=== PATIENT | male | born 1955 | race Two or more races ===

== ENCOUNTER 2024-10-10 12:35 | Emergency (ER) | payer OTHER ==
[~2024-10-10] VITALS: Ht 160 cm; Wt 66.3 kg
--- NOTE | 2024-10-10 13:13 | ED.PDOC ---
Ghassan. trauma (HPI) HPI Comments HPI: Poor Historian. 69 y.o male presents to the ED for an evaluation of a head injury. Patient reports rolling out of his bed around 0100 and hit the posterior side of his head. Patient has mild local pain to the back of his scalp. Patient denies any LOC, nausea, vomiting, chest pain, SOB or dizziness. Patient is on blood thinners but is unsure of the name of medication. Vitals BP: 116/73 HR: 61 Temp: 98.6 F RR: 16 SPO2: 9 6% RA Past medical history: DM, Hyperlipidemia, HTN, Arthritis Past surgical history: Angioplasty Allergies: Denies Solomon: normal exam. REVIEW OF SYSTEMS: CONSTITUTIONAL: Denies acute: fever, diaphoresis, chills, generalized weakness. HEAD: Denies acute: photophobia Eyes: Denies acute: Double vision, vision loss, eye pain, eye discharge. EARS: Denies acute: tinnitus, hearing loss, ear discharge, ear pain, THROAT: Denies acute: sore throat, swelling, difficulty swallowing , pain with swallowing, change in voice. NECK: Denies acute: neck pain, neck swelling, stiff neck. HEART: Denies acute : chest pain, palpitations, LUNGS: Denies acute: SOB, wheezing, cough, hemoptysis ABDOMEN: Denies acute: abdominal pain, Nausea, Vomiting, diarrhea, melena , hematemesis, hematochezia SKIN: Denies acute: rash, redness, lesions, itchiness. EXTREMITIES: Denies acute: calf pain, numbness, tingling, weakness, denies pain in extremity. Denies acute: Low back pain. Neuro: Denies acute: focal neurological deficit, motor or sensory focal neurological deficit, tremors, seizure like activity, confusion, dizziness, change in mental status, loss of bowel or bladder function, cauda equina like symptoms. : Denies acute: dysuria, hematuria, flank pain, increase in urinary frequency. PSYCH: Denies acute: hallucination, suicidal ideation, homicidal ideation. PHYSICAL EXAM: General: no acute distress, awake and alert. Head: normocephalic, atraumatic. No swelling. Patient has a focal point of pain at the crown of his head where he fell. Neck: supple, trachea is midline, no swelling. Cervical spine: Palpation of the posterior midline of the cervical spine reveals no focal swelling, erythema, focal tenderness to palpation. Patient has normal range of motion. Throat: Normal phonation. Eyes:, no erythema, no purulent discharge, no proptosis, no icterus. Heart: regular rate, regular rhythm, no significant murmur appreciated. Lungs: no apparent respiratory distress, Able to speak in full sentences. No wheezing, no rhonchi, no crackles. No stridors Clear to auscultation bilaterally. Abdomen: non tender to palpation, non distended, soft, no guarding, no rebound, + bowel sounds. Neuro: Awake, Alert, oriented to name, self, situation, follows commands GCS=15. Speech is normal. Skin: no petechia, no purpura, no cyanosis, non-pale, not jaundice. Lower extremities: --no - Pitting edema no deformity, no focal swelling, no calf TTP. Makes eye contact. moves all four extremities. Face: no apparent facial droop. Ambulating in the ED independently. PERRLA, EOM-I CN 2-12 are grossly intact, Pedal pulses are palpable. No nystagmus. No nuchal rigidity, Kernig's sign, Brudzinski's sign, no meningeal signs. ED COURSE: Chief Complaint: Head Injury Time Seen by MD: 13:00 Reviewed notes: Nurses Notes, Allergies Allergies: Coded Allergies: NO KNOWN ALLERGIES (Unverified , 10/10/24) Information Source: Patient Mode of Arrival: Ambulatory Past Medical History PAST MEDICAL HISTORY: Arthritis, DM, High Lipids, HTN Surgical History (Other): angioplasty Family History Family History: Reviewed,noncontributory to illness Social History Smoker: Non-Smoker Alcohol: Denies ETOH Use Drugs: Denies Drug Use Lives In: Home Was a procedure done? Was a procedure done?: No Differential Diagnosis Multiple Trauma: Closed Head Injury, Contusion X-Ray, Labs, Meds, VS Vital Signs Date Time Temp Pulse Resp B/P (MAP) Pulse Ox O2 Delivery O2 Flow Rate FiO2 10/10/24 17:40 98.0 55 18 122/77 (92) 100 98.0 10/10/24 15:40 50 18 100 Room Air* 0 21 10/10/24 15:40 98.0 50 18 121/66 (84) 100 98.0 10/10/24 12:35 98.6 61 16 119/73 (88) 96 Lab Test 10/10/24 15:39 10/10/24 15:24 10/10/24 13:46 Range/Units Urine Color Light-yellow Yellow Urine Clarity Clear Clear Urine pH 6.0 5.0-9.0 Urine Specific Dierks 1.018 1.001-1.035 Urine Protein Negative Negative Urine Ketones Negative Negative Urine Blood Negative Negative /uL Urine Nitrite Negative Negative Urine Bilirubin Negative Negative Urine Urobilinogen Normal Negative mg/dL Urine Leukocyte Esterase Negative Negative /uL Urine RBC 1 0 - 3 /hpf Urine Microscopic WBC < 1 0-3 /HPF Urine Squamous Epithelial Cells Few <5 /hpf Urine Bacteria None seen None Seen /hpf Urine Glucose 4+ H Normal mg/dL Troponin I High Sensitivity 7 7 </=54 ng/L White Blood Count 7.7 4.4-10.8 10^3/uL Red Blood Count 4.95 4.5-5.90 10^6/uL Hemoglobin 15.7 13.5-17.5 g/dL Hematocrit 47.6 41.0-53.0 % Mean Corpuscular Volume 96.2 80.0-100.0 fL Mean Corpuscular Hemoglobin 31.8 28.0-32.0 pg Mean Corpuscular Hemoglobin Concent 33.0 32.0-36.0 g/dL Red Cell Distribution Width 14.8 H 11.8-14.3 % Platelet Count 181 140-450 10^3/uL Mean Platelet Volume 9.7 6.9-10.8 fL Neutrophils (%) (Auto) 70.6 37.0-80.0 % Lymphocytes (%) (Auto) 18.4 10.0-50.0 % Monocytes (%) (Auto) 6.6 0.0-12.0 % Eosinophils (%) (Auto) 3.7 0.0-7.0 % Basophils (%) (Auto) 0.7 0.0-2.0 % Neutrophils # (Auto) 5.4 1.6-8.6 10 ^3/uL Lymphocytes # (Auto) 1.4 0.4-5.4 10 ^3/uL Monocytes # (Auto) 0.5 0-1.3 10 ^3/uL Eosinophils # (Auto) 0.3 0-0.8 10 ^3/uL Basophils # (Auto) 0.1 0-0.2 10 ^3/uL Nucleated Red Blood Cells 0.2 % Sodium Level 141 136-145 mmol/L Potassium Level 4.7 3.5-5.1 mmol/L Chloride Level 105 98-107 mmol/L Carbon Dioxide Level 29 20-31 mmol/L Anion Gap 7 5-15 Blood Urea Nitrogen 13 9-23 mg/dL Creatinine 1.06 0.700-1.30 mg/dL Glomerular Filtration Rate Calc 76 >90 mL/min BUN/Creatinine Ratio 12.3 10.0-20.0 Serum Glucose 93 74-106 mg/dL Calcium Level 10.5 H 8.7-10.4 mg/dL Total Bilirubin 0.4 0.2-1.0 mg/dL Aspartate Amino Transferase (AST) 17 13-40 U/L Alanine Aminotransferase (ALT) 28 7-40 U/L Alkaline Phosphatase 122 H 46-116 U/L Total Protein 6.9 5.7-8.2 g/dL Albumin 4.9 H 3.2-4.8 g/dL [place] [address] Ph: [phone] DIAGNOSTIC IMAGING Diagnostic Imaging Report : [id number] Signed PATIENT: LENCHO VOOACCT: [id number] UNIT: [id number] : 1955 LOC: ER ROOM / BED: / AGE / SEX: 69 / M ADM STATUS: REG ER SERVICE 1259 ORDERING PHYSICIAN: GABRIELA KING DO PROCEDURE(s): HWOCT - HEAD WITHOUT CONTRAST REASON: fall injury ORDER NUMBER(s): [id number], ACCESSION NUMBER(s): [id number] EXAM: CT HEAD WITHOUT CONTRAST HISTORY: fall injury COMPARISON: None TECHNIQUE: Axial images of the head were obtained and reformatted in coronal and sagittal planes. All CT scans at this medical facility are performed using dose modulation techniques as appropriate to a performed exam including the following: Automated exposure control was utilized; adjustment of the MA and/or KV according to patient size; and use of iterative reconstruction technique. CT Dose: CTDI volume is 54 mGy. Dose-length product is 1629 mGy*cm FINDINGS: There is no evidence of acute intracranial hemorrhage, mass, mass effect midline shift. There is no hydrocephalus or extra-axial fluid collection. There is a small area of encephalomalacia in the medial right parietal lobe. Quesada-white matter differentiation is otherwise maintained. The visualized paranasal sinuses and mastoid air cells are clear. The calvarium is intact. IMPRESSION: 1. No acute intracranial process. HS:Y ATED BY: JARED LOPEZ MD DICTATED DATE/TIME: 10/10/241344 SIGNED BY: JARED LOPEZ MD SIGNED DATE/TIME: 10/10/241344 CC: [place] [address] Ph: [phone] DIAGNOSTIC IMAGING Diagnostic Imaging Report : [id number] Signed PATIENT: LENCHO VOOACCT: [id number] UNIT: [id number] : 1955 LOC: ER ROOM / BED: / AGE / SEX: 69 / M ADM STATUS: REG ER SERVICE 1259 ORDERING PHYSICIAN: GABRIELA KING DO PROCEDURE(s): CXRP - CHEST PORTABLE REASON: fall injury ORDER NUMBER(s): [id number], ACCESSION NUMBER(s): [id number] INDICATION: fall injury TECHNIQUE: Frontal view of the chest. COMPARISON: None FINDINGS: The heart and mediastinal contours are grossly unremarkable. There is no evidence of pleural disease. The lungs are clear. The bony structures of the chest are intact without fracture. IMPRESSION: 1. No evidence of acute disease. ATED BY: BETH MEYER MD DICTATED DATE/TIME: 10/10/241335 SIGNED BY: BETH MEYER MD SIGNED DATE/TIME: 10/10/241335 CC: [place] [address] Ph: [phone] DIAGNOSTIC IMAGING Diagnostic Imaging Report : [id number] Signed PATIENT: LENCHO VOOACCT: [id number] UNIT: [id number] : 1955 LOC: ER ROOM / BED: / AGE / SEX: 69 / M ADM STATUS: REG ER SERVICE 1259 ORDERING PHYSICIAN: GABRIELA KING DO PROCEDURE(s): CS2 - CERVICAL WITHOUT CONTRAST REASON: fall injury ORDER NUMBER(s): [id number], ACCESSION NUMBER(s): [id number] EXAM: CT CERVICAL WITHOUT CONTRAST INDICATION: fall injury EXAM DATE: 10/10/2024 01:06 PM COMPARISON: None TECHNIQUE: Noncontrast axial CT images of the cervical spine were performed. Sagittal and coronal reformatted images were obtained. Radiation optimization: All CT scans at this facility use at least one of these dose optimization techniques: automated exposure control mA and/or kV adjustment per patient size (includes targeted exams where dose is matched to clinical indication) or iterative reconstruction. Radiation Dose Information: CT Dose: CTDI volume is 20.96 mGy. Dose-length product is 657.66 mGy*cm FINDINGS: See below IMPRESSION: 1. No fracture of the cervical spine. 2. Advanced cervical degenerative disc disease and facet arthropathy with significant neural foraminal stenosis at C2-C3 on the left; C3-C4 on the left; C5-C6 on the left; C6-C7 bilaterally. These findings may correspond to upper extremity radicular symptoms in the left C3, left C4, left C6, and bilateral C7 nerve root distributions. 3. 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 Recommend follow-up noncontrast MRI of the cervical spine for better characterization as there is likely mass effect on the cervical spinal cord at multiple levels. 4. The patient is completely edentulous. 5. Ellamore tonsillar hypertrophy without significant airway narrowing. 6. Paraseptal emphysema of the lung apices. 7. Fluid in the bilateral mastoid air cells which may be due to sterile fluid or mastoiditis. 8. Atherosclerotic calcifications of the bilateral carotid bulbs. ATED BY: CARL PRECIADO MD DICTATED DATE/TIME: 10/10/24 1355 SIGNED BY: CARL PRECIADO MD SIGNED DATE/TIME: 10/10/24 1355 CC: Time of 1ST Reevaluation: 13:07 Reevaluation 1ST: Unchanged Time of 2ND Reevaluation: 00:00 Reevaluation 2ND: Resolved Patient Education/Counseling: Diagnosis, Treatment Family Education/Counseling: No Family Present Comments Patient presented with the above HPI.---headache/closed head injury---workup was initiated. patient was found with the above mentioned diagnosis. the following medications were ordered: please refer to order lists of meds and tests obtained by myself Dr. King. Patient ED course and VS have been stabilized. Patient has been reassessed in the ED and remained in a stable condition. Pertinent incidental findings were discussed with the patient and/or family. Patient/family voices understanding and is agreeable with plan. Patient has been observed in the ED adequate length of time to insure improvement/stability. Escalation of care considered: Consideration of escalation to observation or admission Patient was DISCHARGED home in a stable condition. All the reports of any imaging studies that were ordered by myself were reviewed by myself. Departure 1 Departure Time of Disposition: 17:18 Impression: Primary Impression: Closed head injury Disposition: 01 HOME / SELF CARE / HOMELESS Condition: Stable Additional Instructions: Additional discharge instructions: You MUST follow-up with your primary care/family doctor in 1 to 2 days. If you are unable to see your primary care/family doctor, please return to our emergency room for re-assessment and re-evaluation in 1 to 2 days. Return to the emergency room here in our facility or to the nearest ER [facility] if your symptoms change or worsen. CONSULTATIONS: you MUST Follow-up for consultation as soon as possible with: -neurology in 1-2 days. Please call for appointment You MUST call the consultants office yourself to make an appointment. You may need to arrange that through your insurance and/or your primary/family doctor. If you are unable to see the contamination consultant in 1 to 2 days, you must return to our emergency room (or any other ER of your choice) for re-assessment and re- evaluation. Adequate fluid hydration. Fall precautions. Monitoring blood pressure at home. Below is a copy of your radiological report for follow up: [place] [id number] Ph: [phone] DIAGNOSTIC IMAGING Diagnostic Imaging Report : [id number] Signed PATIENT: CHARLES VO ACCT: [id number] UNIT: [id number] : 1955 LOC: ER ROOM / BED: / AGE / SEX: 69 / M ADM STATUS: REG ER SERVICE 1259 ORDERING PHYSICIAN: GABRIELA KING DO PROCEDURE(s): HWOCT - HEAD WITHOUT CONTRAST REASON: fall injury ORDER NUMBER(s): [id number], ACCESSION NUMBER(s): [id number] EXAM: CT HEAD WITHOUT CONTRAST HISTORY: fall injury COMPARISON: None TECHNIQUE: Axial images of the head were obtained and reformatted in coronal and sagittal planes. All CT scans at this medical facility are performed using dose modulation techniques as appropriate to a performed exam including the following: Automated exposure control was utilized; adjustment of the MA and/or KV according to patient size; and use of iterative reconstruction technique. CT Dose: CTDI volume is 54 mGy. Dose-length product is 1629 mGy*cm FINDINGS: There is no evidence of acute intracranial hemorrhage, mass, mass effect midline shift. There is no hydrocephalus or extra-axial fluid collection. There is a small area of encephalomalacia in the medial right parietal lobe. Quesada-white matter differentiation is otherwise maintained. The visualized paranasal sinuses and mastoid air cells are clear. The calvarium is intact. IMPRESSION: 1. No acute intracranial process. HS:Y ATED BY: JARED LOPEZ MD DICTATED DATE/TIME: 10/10/24 1345 SIGNED BY: JARED LOPEZ MD SIGNED DATE/TIME: 10/10/24 1345 CC: [address] [address] Ph: [phone] DIAGNOSTIC IMAGING Diagnostic Imaging Report : [id number] Signed PATIENT: CHARLES VO ACCT: [id number] UNIT: [id number] : 1955 LOC: ER ROOM / BED: / AGE / SEX: 69 / M ADM STATUS: REG ER SERVICE 1259 ORDERING PHYSICIAN: GABRIELA KING DO PROCEDURE(s): CXRP - CHEST PORTABLE REASON: fall injury ORDER NUMBER(s): [id number], ACCESSION NUMBER(s): [id number] INDICATION: fall injury TECHNIQUE: Frontal view of the chest. COMPARISON: None FINDINGS: The heart and mediastinal contours are grossly unremarkable. There is no evidence of pleural disease. The lungs are clear. The bony structures of the chest are intact without fracture. IMPRESSION: 1. No evidence of acute disease. ATED BY: BETH MEYER MD DICTATED DATE/TIME: 10/10/241335 SIGNED BY: BETH MEYER MD SIGNED DATE/TIME: 10/10/241335 CC: [place] [address] Ph: [phone] DIAGNOSTIC IMAGING Diagnostic Imaging Report : [id number] Signed PATIENT: CHARLES VO ACCT: [id number] UNIT: [id number] : 1955 LOC: ER ROOM / BED: / AGE / SEX: 69 / M ADM STATUS: REG ER SERVICE 1259 ORDERING PHYSICIAN: GABRIELA KING DO PROCEDURE(s): CS2 - CERVICAL WITHOUT CONTRAST REASON: fall injury ORDER NUMBER(s): [id number], ACCESSION NUMBER(s): [id number] EXAM: CT CERVICAL WITHOUT CONTRAST INDICATION: fall injury EXAM DATE: 10/10/2024 01:06 PM COMPARISON: None TECHNIQUE: Noncontrast axial CT images of the cervical spine were performed. Sa gittal and coronal reformatted images were obtained. Radiation optimization: All CT scans at this facility use at least one of these dose optimization techniques: automated exposure control mA and/or kV adjustment per patient size (includes targeted exams where dose is matched to clinical indication) or iterative reconstruction. Radiation Dose Information: CT Dose: CTDI volume is 20.96 mGy. Dose-length product is 657.66 mGy*cm FINDINGS: See below IMPRESSION: 1. No fracture of the cervical spine. 2. Advanced cervical degenerative disc disease and facet arthropathy with significant neural foraminal stenosis at C2-C3 on the left; C3-C4 on the left; C5-C6 on the left; C6-C7 bilaterally. These findings may correspond to upper extremity radicular symptoms in the left C3, left C4, left C6, and bilateral C7 nerve root distributions. 3. 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 Recommend follow-up noncontrast MRI of the cervical spine for better characterization as there is likely mass effect on the cervical spinal cord at multiple levels. 4. The patient is completely edentulous. 5. Ellamore tonsillar hypertrophy without significant airway narrowing. 6. Paraseptal emphysema of the lung apices. 7. Fluid in the bilateral mastoid air cells which may be due to sterile fluid or mastoiditis. 8. Atherosclerotic calcifications of the bilateral carotid bulbs. ATED BY: CARL PRECIADO MD DICTATED DATE/TIME: 10/10/24 1355 SIGNED BY: CARL PRECIADO MD SIGNED DATE/TIME: 10/10/24 1355 CC: Discharged With: Self, Relative Critical Care Note Critical Care Time?: No I personally scribed for GABRIELA KING DO ([email or web address]) on 10/10/24 at 13:13. Electronically submitted by Ladi Alves ([facility]). I personally scribed for GABRIELA KING DO ([email or web address]) on 10/10/24 at 13:16. Electronically submitted by Ladi Alves ([facility]). I personally scribed for GABRIELA KING DO (DVFARMI) on 10/10/24 at 14:19. Electronically submitted by Ladi Alves ([facility]). I personally scribed for GABRIELA KING DO ([email or web address]) on 10/10/24 at 16:01. Electronically submitted by Ladi Alves ([facility]). GABRIELA KING DO Oct 10, 2024 13:13
--- NOTE | 2024-10-10 13:38 | DVH ---
INDICATION: fall injury TECHNIQUE: Frontal view of the chest. COMPARISON: None FINDINGS: The heart and mediastinal contours are grossly unremarkable. There is no evidence of pleural disease . The lungs are clear. The bony structures of the chest are intact without fracture. IMPRESSION: 1. No evidence of acute disease.
--- NOTE | 2024-10-10 13:47 | DVH ---
EXAM: CT HEAD WITHOUT CONTRAST HISTORY: fall injury COMPARISON: None TECHNIQUE: Axial images of the head were obtained and reformatted in coronal and sagittal planes. All CT scans at this medical facility are performed using dose modulation techniques as appropriate t o a performed exam including the following: Automated exposure control was utilized; adjustment of th e MA and/or KV according to patient size; and use of iterative reconstruction technique. CT Dose: CTDI volume is 54 mGy. Dose-length product is 1629 mGy*cm FINDINGS: There is no evidence of acute intracranial hemorrhage, mass, mass effect midline shift. There is no h ydrocephalus or extra-axial fluid collection. There is a small area of encephalomalacia in the medial right parietal lobe. Quesada-white matter differentiation is otherwise maintained. The visualized paranasal sinuses and mastoid air cells are clear. The calvarium is intact. IMPRESSION: 1. No acute intracranial process. HS:Y
--- NOTE | 2024-10-10 13:57 | DVH ---
EXAM: CT CERVICAL WITHOUT CONTRAST INDICATION: fall injury EXAM DATE: 10/10/2024 01:06 PM COMPARISON: None TECHNIQUE: Noncontrast axial CT images of the cervical spine were performed. Sagittal and coronal ref ormatted images were obtained. Radiation optimization: All CT scans at this facility use at least one of these dose optimization techniques: automated exposure control mA and/or kV adjustment per patie nt size (includes targeted exams where dose is matched to clinical indication) or iterative reconstr uction. Radiation Dose Information: CT Dose: CTDI volume is 20.96 mGy. Dose-length product is 657.66 mGy*cm FINDINGS: See below IMPRESSION: 1. No fracture of the cervical spine. 2. Advanced cervical degenerative disc disease and facet arthropathy with significant neural foramina l stenosis at C2-C3 on the left; C3-C4 on the left; C5-C6 on the left; C6-C7 bilaterally. These find ings may correspond to upper extremity radicular symptoms in the left C3, left C4, left C6, and bilat eral C7 nerve root distributions. 3. 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 Recommend follow-up noncontrast MRI of the cervical spine for better characterization as ther e is likely mass effect on the cervical spinal cord at multiple levels. 4. The patient is completely edentulous. 5. Parker tonsillar hypertrophy without significant airway narrowing. 6. Paraseptal emphysema of the lung apices. 7. Fluid in the bilateral mastoid air cells which may be due to sterile fluid or mastoiditis. 8. Atherosclerotic calcifications of the bilateral carotid bulbs.
[2024-10-10 14:22] LABS: Basophils # (auto) 0.1 10 ^3/uL (0-0.2); Basophils % (auto) 0.7 % (0.0-2.0); Eosinophils # (auto) 0.3 10 ^3/uL (0-0.8); Eosinophils % (auto) 3.7 % (0.0-7.0); Hematocrit 47.6 % (41.0-53.0); Hemoglobin 15.7 g/dL (13.5-17.5); Lymphocytes # (auto) 1.4 10 ^3/uL (0.4-5.4); Lymphocytes % (auto) 18.4 % (10.0-50.0); Mean Corpuscular Hemoglobin 31.8 pg (28.0-32.0); Mean Corpuscular Volume 96.2 fL (80.0-100.0); Monocytes # (auto) 0.5 10 ^3/uL (0-1.3); Monocytes % (auto) 6.6 % (0.0-12.0); Neutrophils # (auto) 5.4 10 ^3/uL (1.6-8.6); Neutrophils % (auto) 70.6 % (37.0-80.0); Nucleated Red Blood Cells % 0.2 %; Platelet Count (auto) 181 10^3/uL (140-450); Red Blood Cells 4.95 10^6/uL (4.5-5.90); Red Cell Distribution Width 14.8 % (11.8-14.3); White Blood Cell 7.7 10^3/uL (4.4-10.8)
[2024-10-10 15:10] LABS: Alanine Aminotransferase 28 U/L (7-40); Anion Gap 7 (5-15); Aspartate Aminotransferase 17 U/L (13-40); BUN/Creatinine Ratio 12.3 (10.0-20.0); Blood Urea Nitrogen 13 mg/dL (9-23); Carbon Dioxide 29 mmol/L (20-31); Chloride 105 mmol/L (98-107); Glucose 93 mg/dL (74-106); Potassium 4.7 mmol/L (3.5-5.1); Sodium 141 mmol/L (136-145); Total Protein 6.9 g/dL (5.7-8.2)
[2024-10-10 15:11] LABS: Bilirubin, Total 0.4 mg/dL (0.2-1.0)
[2024-10-10 15:14] LABS: Albumin 4.9 g/dL (3.2-4.8); Alkaline Phosphatase 122 U/L (46-116); Calcium 10.5 mg/dL (8.7-10.4)
[2024-10-10 15:40] VITALS: PULSE 50; RESP 18; O2SAT 100
[2024-10-10 16:11] LABS: Urine Bacteria None Seen /hpf (None Seen)
[2024-10-10 16:37] LABS: Urine Blood Negative /uL (Negative); Urine Clarity Clear (Clear); Urine Color Light-Yellow (Yellow); Urine Protein, UAD Negative (Negative); Urine Specific Gravity 1.018 (1.001-1.035); Urine Squamous Epithelial Cell FEW /hpf (<5); Urine Urobilinogen Normal (Negative); Urine WBC < 1 /HPF (0-3)
[2024-10-10 17:40] VITALS: BP 122/77; PULSE 55; RESP 18; TEMP 98; O2SAT 100
== END 2024-10-10 17:42 | disposition home or self-care (01) ==
LOC: ER 12:35
DX: S09.8XXA Other specified injuries of head, initial encounter (principal); I10 Essential (primary) hypertension; E11.9 Type 2 diabetes mellitus without complications; E78.5 Hyperlipidemia, unspecified; W22.03XA Walked into furniture, initial encounter; Y93.89 Activity, other specified; Y92.89 Other specified places as the place of occurrence of the external cause; Y99.8 Other external cause status
CPT/HCPCS: 36415; 70450; 71045; 72125; 80053; 81001; 84484; 85025